=== PATIENT | male | born 2000 | race African-American/Black ===

== ENCOUNTER 2021-07-26 17:28 | Emergency (ER) | payer OTHER ==
[~2021-07-26] VITALS: Ht 180.3 cm; Wt 79.2 kg
[2021-07-26] MEDS ORDERED: TETRACAINE 0.5% OPHTH SOLN 4ML OD ONE (19:20)
[2021-07-26] MEDS ORDERED: FLUORESCEIN OPHTH 1 MG STRIP OS ONE (19:20)
[2021-07-26] MEDS ORDERED: OFLOXACIN 0.3 % (OCUFLOX) OPTH SOL 5ML OS STA (19:36)
[2021-07-26] MEDS ORDERED: OCUF0.25 OS (19:45)
[2021-07-26 20:24] VITALS: BP 127/72
== END 2021-07-26 20:26 | disposition home or self-care (01) ==
LOC: M ED 17:28
DX: H10.32 Unspecified acute conjunctivitis, left eye (principal)